=== PATIENT | male | born 1950 | race Caucasian/White ===

== ENCOUNTER → 2020-10-31 | Outpatient (CLI) | payer MEDICARE ==
[~2020-10-31] MED LIST: AMLO5 PO; ATOR20 PO; Aspir 8181 MG PO; MELATONIN1010 PO; METF500C PO; MONT10T PO; NAPR220 PO; OMEP20ER PO; OXAYDO5 M1 PO; ZYRTEC10 M2 PO; Zestril30 MG PO
[2020-11-02 16:43] LABS: CORONAVIRUS (COVID19) CSH-NRL Negative (Negative)
== END | disposition home or self-care (01) ==
LOC: LAB EV 17:36 → LAB SHORT 17:36
PROVIDERS: Family Medicine
DX: Z20.822 Contact with and (suspected) exposure to COVID-19 (principal)
CPT/HCPCS: U0003

== ENCOUNTER 2021-01-23 13:06 | Inpatient (IN) | payer MEDICARE ==
[~2021-01-23] VITALS: Ht 172.7 cm; Wt 91.7 kg
[2021-01-23] MEDS ORDERED: METF500C PO (13:18)
[2021-01-23] MEDS ORDERED: Zestril30 MG PO (13:18)
[2021-01-23] MEDS ORDERED: ATOR20 PO (13:19)
[2021-01-23 14:46] LABS: BASOPHILS ABSOLUTE AUTO 0.08 K/mm3 (0.00-0.23); BASOPHILS PERCENT AUTO 1 % (0-2); EOSINOPHILS ABSOLUTE AUTO 0.13 K/mm3 (0.00-0.68); EOSINOPHILS PERCENT AUTO 1 % (0-6); Hematocrit 43.1 % (37.0-53.0); Hemoglobin 14.5 g/dL (13.5-17.5); IMMATURE GRAN PERCENT AUTO 1 % (0-1); LYMPHOCYTES ABSOLUTE AUTO 1.11 K/mm3 (0.84-5.20); LYMPHOCYTES PERCENT AUTO 9 % (21-46); MONOCYTES PERCENT AUTO 8 % (4-13); Mean Corpuscular HGB 29.7 pg (26.0-34.0); Mean Corpuscular HGB Conc 33.6 g/dL (31.5-36.5); Mean Corpuscular Volume 88 fL (80-100); Mean Platelet Volume 9.7 fL (9.1-12.4); NEUTROPHILS ABSOLUTE AUTO 9.48 K/mm3 (1.96-9.15); NEUTROPHILS PERCENT AUTO 80 % (41-73); Platelet Count 197 K/mm3 (150-400); RDW Coefficient Variation 12.5 % (11.7-14.2); RDW Standard Deviation 40.4 fL (35.1-46.3); Red Blood Cell Count 4.88 M/mm3 (4.30-5.90)
[2021-01-23 15:27] LABS: Alanine Aminotransfer (ALT/SGP 56 U/L (12-78); Albumin, Blood 3.7 g/dL (3.4-5.0); Albumin/Globulin Ratio 1.1 (0.8-1.8); Alk Phos 76 U/L (50-136); Anion Gap 6 mmol/L (6-16); Aspartate Aminotrans (AST/SGOT 33 U/L (12-37); Bilirubin, Total 0.6 mg/dL (0.1-1.0); Blood Urea Nitrogen 26 mg/dL (8-24); Bun/Creatinine Ratio 29.6 (12.0-20.0); CO2, Blood 24 mmol/L (21-32); Calcium, Blood 8.3 mg/dL (8.5-10.1); Chloride, Blood 110 mmol/L (98-108); Creatinine, Blood 0.88 mg/dL (0.60-1.20); Globulin, Blood 3.4 g/dL (2.2-4.0); Glomerular Filtration Rate >60 (60-); Glucose, Blood 107 mg/dL (70-99); Potassium, Blood 4.5 mmol/L (3.5-5.5); Sodium, Blood 140 mmol/L (136-145); Total Protein, Blood 7.1 g/dL (6.4-8.2)
[2021-01-23] MEDS ORDERED: OMEP20ER PO (15:58)
[2021-01-23] MEDS ORDERED: MONT10T PO (15:59)
[2021-01-23] MEDS ORDERED: NAPR220 PO (16:08)
[2021-01-23] MEDS ORDERED: MELATONIN1010 PO (16:08)
[2021-01-23] MEDS ORDERED: Aspir 8181 MG PO (16:08)
[2021-01-23] MEDS ORDERED: ZYRTEC10 M2 PO (16:08)
--- NOTE | 2021-01-23 22:08 | NUR ---
CALL TO HOSPITALIST DR. GUILLEN / DIET ORDERS RECEIVED OK TO GIVE [facility] DIET UP UNTIL MIDNIGHT, THEN NPO AFTER MIDNIGHT.
[2021-01-23 23:57] LABS: Influenza A, PCR NEGATIVE (NEGATIVE); Influenza B, PCR NEGATIVE (NEGATIVE); Resp Syncytial Virus, PCR NEGATIVE (NEGATIVE); SARS-Cov-2 (COVID-19) PCR, MMC NEGATIVE (NEGATIVE)
--- NOTE | 2021-01-24 04:34 | NUR ---
SHIFT SUMMARY: VSS. AFEB. 02 96% ON RA. NO SOB OR COUGHING. MED X 2 FOR LLE PAIN EFFECTIVELY. SPLINT IN PLACE TO LLE. TOES COLD BILATERALLY. CAP REFILL <4 SEC. ABLE TO MOVE TOES. PEDAL PULSES PRESENT BILATERALLY. LLE ELEVATED ON SEVERAL PILLOWS. PT REMAINS NPO SINCE MIDNIGHT IN PREPARATION FOR SURGERY TODAY. BEDREST. AAOX4. CALLS APPROPRIATELY.
[2021-01-24 05:17] LABS: BASOPHILS ABSOLUTE AUTO 0.09 K/mm3 (0.00-0.23); BASOPHILS PERCENT AUTO 1 % (0-2); EOSINOPHILS PERCENT AUTO 4 % (0-6); Hemoglobin 13.8 g/dL (13.5-17.5); IMMATURE GRAN ABSOLUTE AUTO 0.03 K/mm3 (0.00-0.10); IMMATURE GRAN PERCENT AUTO 0 % (0-1); LYMPHOCYTES ABSOLUTE AUTO 1.51 K/mm3 (0.84-5.20); LYMPHOCYTES PERCENT AUTO 18 % (21-46); MONOCYTES ABSOLUTE AUTO 1.02 K/mm3 (0.16-1.47); MONOCYTES PERCENT AUTO 12 % (4-13); Mean Corpuscular HGB 29.9 pg (26.0-34.0); Mean Corpuscular HGB Conc 32.9 g/dL (31.5-36.5); Mean Corpuscular Volume 91 fL (80-100); Mean Platelet Volume 9.7 fL (9.1-12.4); NEUTROPHILS ABSOLUTE AUTO 5.38 K/mm3 (1.96-9.15); NEUTROPHILS PERCENT AUTO 65 % (41-73); Platelet Count 191 K/mm3 (150-400); RDW Coefficient Variation 12.8 % (11.7-14.2); RDW Standard Deviation 42.5 fL (35.1-46.3); Red Blood Cell Count 4.61 M/mm3 (4.30-5.90); White Blood Cell Count 8.33 K/mm3 (4.00-11.30)
[2021-01-24 05:42] LABS: Anion Gap 6 mmol/L (6-16); Blood Urea Nitrogen 21 mg/dL (8-24); Bun/Creatinine Ratio 21.6 (12.0-20.0); CO2, Blood 24 mmol/L (21-32); Calcium, Blood 8.2 mg/dL (8.5-10.1); Chloride, Blood 108 mmol/L (98-108); Creatinine, Blood 0.97 mg/dL (0.60-1.20); Glomerular Filtration Rate >60 (60-); Glucose, Blood 101 mg/dL (70-99); Magnesium, Blood 2.2 mg/dL (1.6-2.4); Potassium, Blood 4.2 mmol/L (3.5-5.5); Sodium, Blood 138 mmol/L (136-145)
--- NOTE | 2021-01-24 12:41 | NUR ---
History, Chart, Medications and Allergies reviewed before start of procedure. Lungs clear T/O to Auscultation. Pre-Op teaching done. Pt verbalizes understanding. PT TRANSFERED TO [facility] VIA BED FROM FLOOR.
--- NOTE | 2021-01-24 14:17 | NUR ---
CARE COORDINATION REFERRAL - ADMIT:01/23/21 DISCHARGE: DX: LEFT TIBIA FRACTURE CC:MADHU MARY CALL: RESIDENCE: HOME CAREGIVER: EVERETT KOLB, SPOUSE / PARTNER, DX: HTN, DECREASED HEARING, GERD, DM-TYPE 2, SEE LIST DME: NONE CCM: NONE HOME HEALTH: NONE SUMMARY: ADMIT: 01/23/21 01/24/21- PER CHART REVIEW, PT IS SCHEDULED FOR SURGERY TODAY. PER CHART REVIEW WITH DR. CORTÉS, PT COULD POTENTIALLY BE D/C EARLY TOMORROW LONG HE IS DOING WELL.-EVA
--- NOTE | 2021-01-24 17:40 | NUR ---
SHIFT SUMMARY PATIENT RECEIVED FROM PACU THIS EVENING. PATIENT ALERT, ORIENTED AND ON ROOM AIR. TOES PINK AND PERFUSED, LEFT FOOT ELEVATED. MEDICATED X1 FOR PAIN WITH PO OXYCODONE. EATING AND DRINKING WITHOUT ISSUE. USING URINAL INDEPENDENTLY IN BED. PLEASANT AND COOPERATIVE WITH CARE.
--- NOTE | 2021-01-25 03:47 | NUR ---
SHIFT SUMMARY PT IS A/O X4. S/P RODDING FOR LEFT TIB/FIB FX. L LOWER LEG IS IN SPLINT WITH RONALDO WRAP IN PLACE. PT REPORTS SOME TINGLING WHICH HE SAYS HAS BEEN IMPROVING T/O THE SHIFT. PAIN MANAGED WITH 10MG OXY PRN. L LEG HAS BEEN ELEVATED WTIH ICE PACK OVERNIGHT. PT IS ABLE TO REPOSITION SELF IN BED. IV FLUIDS INFUSING OVERNIGHT. PT IS TOLERATING PO INTAKE W/O N/V AND VOIDING USING URINAL. PT DID REQUEST NOT TO BE AWAKEND FOR MIDNIGHT CBG. PT RESTING IN BED AT THIS TIME, CALL LIGHT IN REACH.
--- NOTE | 2021-01-25 10:00 | NUR ---
01/25/21 Omaira Morris VERIFICATIONS: EDIT CHART.
--- NOTE | 2021-01-25 15:12 | NUR ---
01/25/21- Per chart review with Dr. Pat, pt could potentially be d/c today. Met with pt and he stated that he will go home where he is strong family support with his being a former [employer]. She is able to care for pt. His [facility]. He identified that he does not have a walker and will need one for when he goes home. He states that they remodeled their home when they bought it and it is handicap accessible. There are 2 small stairs to get into the home and he has no concerns going up them. Ordered 4-wheeled walker through [employer] to be delivered to his room prior to d/c. -justin
--- NOTE | 2021-01-25 16:56 | NUR ---
SECOND IV R WRIST IV INSERTED PRIOR TO UNIT ARRIVAL. NOT INSERTED BY THIS RN.
--- NOTE | 2021-01-25 16:57 | NUR ---
PHYSICIAN AT BEDSIDE LEFT MESSAGE WITH [employer] AP[employer]AISAL MANAGER TO CALL BACK THIS UNIT REGARDING DISCHARGE PLANNING. PT IN NEED OF FRONT WHEEL WALKER PRIOR TO DISCHARGE PER P/T AND PHYSICIAN.
--- NOTE | 2021-01-25 18:01 | NUR ---
SHIFT SUMMARY PT ALERT AND ORIENTED X 4. HR STABLE. BP STABLE. NO CP OR PRESSURE. OXYGEN SATURATION MAINTAINED ABOVE 92% ON RA. PT ABLE TO TURN SELF IN BED NEEDED. WORKED WITH PT/OT. RECOMMENDS FRONT WHEELED WALKER UPON [employer]. AT BEDSIDE. SURGICAL DRESSING C/D/I. PEDAL PULSES STRONG. SENSATION INTACT. MEDICATED PER EMAR FOR PAIN. WILL CONTINUE TO MONITOR UNTIL REPORT GIVEN TO NIGHTSHIFT RN.
--- NOTE | 2021-01-26 07:26 | NUR ---
SHIFT SUMMARY POD2 L RODDING TIB/FIB, A/O X4, VSS, TOLERATING PO, VOIDING WELL, PASSING FLATUS, PAIN WELL MANAGED W/ ORAL PAIN MEDS, AMBULATING WELL W/ ASSISTANCE. NO ACUTE EVENTS THIS SHIFT. CALL LIGHT IN REACH, REPORT GIVEN TO DAY RN.
--- NOTE | 2021-01-26 13:27 | NUR ---
01/26/21- per chart review with Dr. Pat, pt is stable to d/c. Pt has been cleared by surgery to d/c home. Received call from David with [employer], when they delivered walker to pt stated that he would like a FWW and after speaking with the [facility] real estate representative and found out they would have to pay for the walker, pt declined to take the walker and he will purchase one on his own. -justin
[2021-01-26] MEDS ORDERED: AMLO5 PO (13:49)
[2021-01-26] MEDS ORDERED: OXAYDO5 M1 PO (13:50)
--- NOTE | 2021-01-26 15:17 | NUR ---
1510 DISCHARGED TO HOME WITH . PT REPORTS PAIN CONTROLLED DENIES NUMBNESS OR TINGLING SPLINT IN PLACE TO LLE. PT VOIDING, DENISE REG DIET
== END 2021-01-26 15:08 | disposition home or self-care (01) | DRG 494 ==
LOC: ER 13:06 → MEDS 17:14 → SURS 17:14 → MEDS 18:22 → SURS 01-24 12:28
PROVIDERS: Emergency Medicine; Orthopaedic Surgery; ADMIT Internal Medicine
PROC: 2W3RX1Z Immobilization of Left Lower Leg using Splint (ICD-10-PCS; 2021-01-23)
PROC: 0QSH06Z Reposition Left Tibia with Intramedullary Internal Fixation Device, Open Approach (ICD-10-PCS; 2021-01-24)
PROC: 0QSK06Z Reposition Left Fibula with Intramedullary Internal Fixation Device, Open Approach (ICD-10-PCS; principal; 2021-01-24 12:30)
DX: S82.252A Displaced comminuted fracture of shaft of left tibia, initial encounter for closed fracture (principal); I10 Essential (primary) hypertension; E78.5 Hyperlipidemia, unspecified; E11.9 Type 2 diabetes mellitus without complications; K21.9 Gastro-esophageal reflux disease without esophagitis; G47.00 Insomnia, unspecified; Z20.822 Contact with and (suspected) exposure to COVID-19; Z79.84 Long term (current) use of oral hypoglycemic drugs
CPT/HCPCS: 0241U; 29515; 36415; 73590; 73600; 73610; 80048; 80053; 82947; 83735; 85025; 93005; 93010; 96374-59; 96375-59; 96376-59; 97110; 97116; 97162; 97166; 97530; 97535; 99285-25; A9270; C1713; C1769; J0690; J1100; J1170; J1815; J1885; J2250; J2370; J2405; J2704; J3010; J7030; J7120